=== PATIENT | male | born 1940 | race Caucasian/White ===

== ENCOUNTER → 2017-07-10 | Outpatient (CLI) | payer MEDICARE ==
[~2017-07-10] MED LIST: NKM
--- NOTE | 2017-07-10 09:17 | Diagnostic Imaging Report ---
PROCEDURE:X-RAY LEFT KNEE, THREE OR MORE VIEWS COMPARISON:None. INDICATIONS:UNILATERAL OSTEOARTHRITIS FINDINGS: No acute, displaced fracture or dislocation. There is moderate medial compartment predominant tricompartmental joint space narrowing, subchondral sclerosis, and marginal osteophytosis. No definite joint effusion. Heterogeneous calcifications within the distal quadriceps tendon. Soft tissues are otherwise unremarkable. 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 Dictated by: Hemanth Lubin M.D. on 07/10/2017 at 9:19 Electronically approved by: Hemanth Lubin M.D. on 07/10/2017 at 9:19
--- NOTE | 2017-07-10 09:38 | Diagnostic Imaging Report ---
PROCEDURE:X-RAY RIGHT SHOULDER, COMPLETE COMPARISON:None. INDICATIONS:RIGHT SHOULDER PAIN FINDINGS: No acute, displaced fracture or dislocation. The humeral head projects appropriately adjacent to the glenoid. There is moderate acromioclavicular joint space narrowing with undersurface osteophytosis. Similar joint space narrowing with marginal osteophytosis along the glenohumeral joint. Soft tissues are unremarkable. Partially visualized right hemithorax is well aerated. Calcific granuloma in the right midlung. 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 Dictated by: Hemanth Lubin M.D. on 07/10/2017 at 9:40 Electronically approved by: Hemanth Lubin M.D. on 07/10/2017 at 9:40
== END ==
LOC: RAD 08:28
PROVIDERS: ATTEND Family Medicine
DX: M17.12 Unilateral primary osteoarthritis, left knee (principal); M75.101 Unspecified rotator cuff tear or rupture of right shoulder, not specified as traumatic

== ENCOUNTER 2020-12-24 11:08 | Emergency (ER) | payer MEDICARE, OTHER ==
[~2020-12-24] VITALS: Ht 170.2 cm; Wt 76.7 kg
[2020-12-24] MEDS ORDERED: ALBUTEROL/IPRATROPIUM 3 ML NEB NEB ONE (12:00)
[2020-12-24] MEDS ORDERED: ALBUTEROL/IPRATROPIUM 3 ML NEB ONE (12:02)
[2020-12-24] MEDS ORDERED: PENICILLIN G BENZATHINE LA 1.2 MU TBX IM STA (12:50)
[2020-12-24] MEDS ORDERED: VENTOLIN HFA18 GM INH (12:53)
[2020-12-24] MEDS ORDERED: GUAIFENESIN-CO118 ML PO (12:56)
== END 2020-12-24 13:16 | disposition home or self-care (01) ==
LOC: FSED 11:15
DX: J02.0 Streptococcal pharyngitis (principal); J98.01 Acute bronchospasm; R91.8 Other nonspecific abnormal finding of lung field; Z20.822 Contact with and (suspected) exposure to COVID-19; Z96.652 Presence of left artificial knee joint
CPT/HCPCS: 71046; 83518; 87400; 99283; J0561; U0002

== ENCOUNTER 2021-07-19 09:29 | Emergency (ER) | payer MEDICARE, OTHER ==
[~2021-07-19] VITALS: Ht 170.2 cm; Wt 76.7 kg
[~2021-07-19 09:29] MED LIST changes: +GUAIFENESIN-CO118 ML PO; +VENTOLIN HFA18 GM INH
[2021-07-19] MEDS ORDERED: GOLYTELY SOLU4000 M1 PO (10:28)
== END 2021-07-19 10:38 | disposition home or self-care (01) ==
LOC: ER 10:00
DX: K59.00 Constipation, unspecified (principal); E03.9 Hypothyroidism, unspecified
CPT/HCPCS: 74018; 99283

== ENCOUNTER 2022-06-16 09:48 | Outpatient (RCR) | payer MEDICARE ==
[~2022-06-16 09:48] MED LIST changes: +GOLYTELY SOLU4000 M1 PO
== END 2022-06-19 ==
LOC: PT 09:48
PROVIDERS: ATTEND Specialist
DX: M17.0 Bilateral primary osteoarthritis of knee (principal); M75.102 Unspecified rotator cuff tear or rupture of left shoulder, not specified as traumatic

== ENCOUNTER 2022-06-24 07:00 | Outpatient (RCR) | payer MEDICARE ==
[2022-07-02] MEDS ORDERED: LEVOTHYROXINE50 MCG PO (10:14)
[2022-07-04] MEDS ORDERED: MECLIZINE HCL12.5 MG PO (20:31)
== END 2022-07-20 ==
LOC: PT 07:00
PROVIDERS: ATTEND Specialist
DX: M17.0 Bilateral primary osteoarthritis of knee (principal); M19.012 Primary osteoarthritis, left shoulder

== ENCOUNTER 2022-07-02 09:47 | Inpatient (IN) | payer MEDICARE ==
[~2022-07-02] VITALS: Ht 170.2 cm; Wt 78.2 kg
[2022-07-02] MEDS ORDERED: LEVOTHYROXINE50 MCG PO (10:14)
[2022-07-02] MEDS ORDERED: MECLIZINE HCL 12.5 MG TAB ONE (10:29)
[2022-07-02] MEDS ORDERED: MECLIZINE HCL 12.5 MG TAB PO ONE (10:30)
[2022-07-02] MEDS ORDERED: SODIUM CHLORIDE 0.9% 1000ML 1,000 ML ONE (11:19)
[2022-07-02] MEDS: SODIUM CHLORIDE 0.9% 1000ML 1,000 ML IV SCH ×2 (11:20→19:15)
[2022-07-02] MEDS ORDERED: ASPIRIN 81 MG CHEW TAB PO ONE (15:15)
[2022-07-02] MEDS ORDERED: SODIUM CHLORIDE FLUSH 10 ML SYR INJ PRN (15:15)
[2022-07-02] MEDS ORDERED: ASPIRIN 81 MG CHEW TAB ONE (15:46)
[2022-07-02 17:30] VITALS: BP 149/83; PULSE 65; RESP 18; TEMP 97.7; O2SAT 100
[2022-07-02 18:22] VITALS: BP 149/83; PULSE 65; RESP 18; TEMP 97.7; O2SAT 100
[2022-07-02 18:55] VITALS: BP_SYST 139; BP_SYST 144; BP_DIAS 76; BP_DIAS 80; PULSE 74; PULSE 77
[2022-07-02 18:56] VITALS: BP 141/69; PULSE 81
[2022-07-02 20:00] VITALS: BP 133/76; PULSE 75; RESP 16; TEMP 97.7; O2SAT 98
[2022-07-02 20:30] VITALS: PULSE 80; RESP 16; O2SAT 97
[2022-07-02] MEDS ORDERED: MECLIZINE HCL 12.5 MG TAB PO PRN (21:15)
[2022-07-03] VITALS (9 sets, daily range): BP systolic 104–129; BP diastolic 59–78; PULSE 66–75; RESP 16–18; TEMP 97–98.1; O2SAT 98–100
[2022-07-03] MEDS: SODIUM CHLORIDE 0.9% 1000ML 1,000 ML IV SCH ×3 (03:13→21:31)
[2022-07-03 05:03] LABS: BASOPHILS # (AUTO) 0.1 (0.0-0.1); BASOPHILS % 0.9 % (0.0-1.0); EOSINOPHILS # (AUTO) 0.2 (0.0-0.4); EOSINOPHILS % 3.1 % (0.0-6.0); HEMOGLOBIN 13.2 g/dL (14.0-18.0); LYMPHOCYTES # (AUTO) 1.3 (1.0-3.2); LYMPHOCYTES % 17.9 % (18.0-39.1); MEAN CORPUSCULAR HEMOGLOBIN 31.9 pg (28-32); MEAN CORPUSCULAR HGB CONC 33.8 g/dL (31-35); MEAN CORPUSCULAR VOLUME 94.2 fL (81-99); MONOCYTES # (AUTO) 0.7 (0.2-0.8); MONOCYTES % 10.5 % (4.4-11.3); NEUTROPHILS # (AUTO) 4.7 (2.1-6.9); NEUTROPHILS % 67.5 % (38.7-80.0); PLATELET COUNT 164 x10e3/uL (140-360); RED BLOOD COUNT 4.14 x10e6/uL (4.3-5.7); RED CELL DISTRIBUTION WIDTH 13.2 % (11.7-14.4)
[2022-07-03 05:31] LABS: ALBUMIN 3.4 g/dL (3.5-5.0); ALBUMIN/GLOBULIN RATIO 1.5 (0.8-2.0); ANION GAP 9.8 mmol/L (8-16); CALCIUM 8.5 mg/dL (8.4-10.2); CREATININE, SERUM 1.05 mg/dL (0.72-1.25); POTASSIUM 3.8 mmol/L (3.5-5.1)
[2022-07-03 06:25] LABS: CHOL/HDL RATIO 5.5 (3.9-4.7)
[2022-07-03 06:43] LABS: CREATINE KINASE MB 1.1 ng/mL (0-5.0)
[2022-07-03] MEDS: ASPIRIN 81 MG ENTERIC COATED PO SCH (08:26)
[2022-07-03] MEDS: LEVOTHYROXINE SODIUM 50 MCG TAB PO SCH (08:26)
[2022-07-03] MEDS ORDERED: BISACODYL 10 MG SUPP PR PRN (12:00)
[2022-07-03 12:48] LABS: CREATINE KINASE 82 IU/L (30-200)
[2022-07-03] MEDS: SENNOSIDES 8.6 MG TAB PO SCH ×2 (14:48→17:00)
[2022-07-03] MEDS: POLYETHYLENE GLYCOL 3350 17 GM PACK PO SCH (14:48)
[2022-07-03] MEDS: DOCUSATE SODIUM 100 MG CAP PO SCH (17:00)
[2022-07-04] VITALS (8 sets, daily range): BP systolic 105–147; BP diastolic 68–84; PULSE 59–68; RESP 17–19; TEMP 97.5–98.2; O2SAT 99–100
[2022-07-04 05:06] LABS: BASOPHILS % 0.7 % (0.0-1.0); EOSINOPHILS # (AUTO) 0.3 (0.0-0.4); HEMATOCRIT 39.6 % (38.2-49.6); HEMOGLOBIN 13.4 g/dL (14.0-18.0); LYMPHOCYTES # (AUTO) 1.3 (1.0-3.2); LYMPHOCYTES % 21.9 % (18.0-39.1); MEAN CORPUSCULAR HEMOGLOBIN 31.7 pg (28-32); MEAN CORPUSCULAR HGB CONC 33.8 g/dL (31-35); MEAN CORPUSCULAR VOLUME 93.6 fL (81-99); MONOCYTES # (AUTO) 0.6 (0.2-0.8); MONOCYTES % 10.7 % (4.4-11.3); NEUTROPHILS # (AUTO) 3.6 (2.1-6.9); NEUTROPHILS % 61.5 % (38.7-80.0); PLATELET COUNT 154 x10e3/uL (140-360); RED BLOOD COUNT 4.23 x10e6/uL (4.3-5.7); RED CELL DISTRIBUTION WIDTH 13.3 % (11.7-14.4)
[2022-07-04] MEDS: SODIUM CHLORIDE 0.9% 1000ML 1,000 ML IV SCH ×2 (05:26→17:16)
[2022-07-04 05:31] LABS: ALBUMIN 3.3 g/dL (3.5-5.0); ALBUMIN/GLOBULIN RATIO 1.5 (0.8-2.0); ANION GAP 10.4 mmol/L (8-16); CALCIUM 8.4 mg/dL (8.4-10.2); CREATININE, SERUM 0.92 mg/dL (0.72-1.25); MAGNESIUM 1.9 MG/DL (1.3-2.1); POTASSIUM 4.4 mmol/L (3.5-5.1)
[2022-07-04 06:24] LABS: CREATINE KINASE MB 1.2 ng/mL (0-5.0)
[2022-07-04] MEDS ORDERED: PROCHLORPERAZINE MALEATE TAB 10 MG TAB PO PRN (09:00)
[2022-07-04] MEDS: SENNOSIDES 8.6 MG TAB PO SCH ×2 (09:22→17:16)
[2022-07-04] MEDS: POLYETHYLENE GLYCOL 3350 17 GM PACK PO SCH (09:22)
[2022-07-04] MEDS: LEVOTHYROXINE SODIUM 50 MCG TAB PO SCH (09:22)
[2022-07-04] MEDS: ASPIRIN 81 MG ENTERIC COATED PO SCH (09:22)
[2022-07-04] MEDS: DOCUSATE SODIUM 100 MG CAP PO SCH ×2 (09:22→17:16)
[2022-07-04] MEDS ORDERED: MECLIZINE HCL12.5 MG PO (20:31)
[2022-07-04] MEDS ORDERED: ATORVASTATIN 40 MG TAB PO SCH (21:00)
[2022-07-05] MEDS ORDERED: LEVOTHYROXINE SODIUM 50 MCG TAB PO SCH (06:00)
== END 2022-07-04 21:24 | disposition home or self-care (01) | DRG 92 ==
LOC: FSED 09:56 → ERHOLD 15:15 → MED/SURG 17:20 → OBSVTOIN 07-04 13:26
PROVIDERS: ADMIT Internal Medicine; ATTEND Internal Medicine
DX: R27.0 Ataxia, unspecified (principal); N17.9 Acute kidney failure, unspecified; R42 Dizziness and giddiness; G62.9 Polyneuropathy, unspecified; E03.9 Hypothyroidism, unspecified; J61 Pneumoconiosis due to asbestos and other mineral fibers; R91.1 Solitary pulmonary nodule; R05.3 Chronic cough; J30.9 Allergic rhinitis, unspecified; K59.00 Constipation, unspecified; N40.0 Benign prostatic hyperplasia without lower urinary tract symptoms; Z87.891 Personal history of nicotine dependence; Z79.890 Hormone replacement therapy; Z81.8 Family history of other mental and behavioral disorders; Z80.42 Family history of malignant neoplasm of prostate; Z82.0 Family history of epilepsy and other diseases of the nervous system
CPT/HCPCS: 36415; 70496; 70498; 70551; 71046; 80053; 80061; 81003; 82550; 82553; 82607; 83735; 83880; 84484; 85025; 85379; 85610; 86039; 86592; 93005; 93880; 94799; 95819; 99284; G0378; J7030

== ENCOUNTER 2023-12-09 11:53 | Emergency (ER) | payer MEDICARE ==
[~2023-12-09] VITALS: Ht 170.2 cm; Wt 76.2 kg
[~2023-12-09 11:53] MED LIST changes: +ALLEGRA ALLERGY60 MG PO; +HYDROCODON-ACE1 EA12 PO; +IBUPROFEN800 MG PO; +LEVOTHYROXINE50 MCG PO; +MECLIZINE HCL12.5 MG PO; +MIRALAX17 GM PO; +TYLENOL EXTRA500 MG PO
[2023-12-09] MEDS ORDERED: ZITHROMAX250 MG PO (13:19)
[2023-12-09] MEDS: AZITHROMYCIN 250 MG TAB PO ONE (13:32)
[2023-12-09 14:02] VITALS: PULSE 65; RESP 17; TEMP 97.4; O2SAT 100
== END 2023-12-09 14:03 | disposition home or self-care (01) ==
LOC: FSED 12:38
DX: R05.9 Cough, unspecified (principal); J40 Bronchitis, not specified as acute or chronic; E86.0 Dehydration; Z77.090 Contact with and (suspected) exposure to asbestos; R91.1 Solitary pulmonary nodule; E78.5 Hyperlipidemia, unspecified; E03.9 Hypothyroidism, unspecified
CPT/HCPCS: 71046; 81003; 87420; 99283

== ENCOUNTER 2023-12-11 08:15 | Emergency (ER) | payer MEDICARE ==
[~2023-12-11] VITALS: Ht 175.3 cm; Wt 77.1 kg
[~2023-12-11 08:15] MED LIST changes: +ZITHROMAX250 MG PO
[2023-12-11 08:24] VITALS: TEMP 99.9
[2023-12-11 08:48] LABS: BASOPHILS % 0.1 % (0.0-1.0); LYMPHOCYTES # (AUTO) 0.4 (1.0-3.2); LYMPHOCYTES % 2.7 % (18.0-39.1); MEAN CORPUSCULAR HEMOGLOBIN 31.9 pg (28-32); MEAN CORPUSCULAR HGB CONC 33.3 g/dL (31-35); MEAN CORPUSCULAR VOLUME 95.7 fL (81-99); MONOCYTES # (AUTO) 0.7 (0.2-0.8); MONOCYTES % 4.2 % (4.4-11.3); NEUTROPHILS # (AUTO) 14.9 (2.1-6.9); NEUTROPHILS % 92.7 % (38.7-80.0); PLATELET COUNT 129 x10e3/uL (140-360); RED CELL DISTRIBUTION WIDTH 13.2 % (11.7-14.4); WHITE BLOOD COUNT 16.12 x10e3/uL (4.8-10.8)
[2023-12-11 09:06] LABS: ANION GAP 14.7 mmol/L (8-16); CALCIUM 9.1 mg/dL (8.4-10.2); CREATININE, SERUM 1.16 mg/dL (0.72-1.25); POTASSIUM 3.7 mmol/L (3.5-5.1)
[2023-12-11 09:07] LABS: INFLUENZAE A&B ANTIGEN (RAPID) NEGATIVE (NEGATIVE)
[2023-12-11 09:08] LABS: RESPIRATORY SYNC. VIRUS NEGATIVE (NEGATIVE)
[2023-12-11 10:10] VITALS: PULSE 82; RESP 15; O2SAT 96
[2023-12-11 10:20] LABS: CLARITY,URINE CLEAR (CLEAR); COLOR,URINE YELLOW (YELLOW); PH,URINE 5.5 (5 - 7)
[2023-12-11 10:21] LABS: BILIRUBIN,URINE NEGATIVE (NEGATIVE); GLUCOSE, URINE NEGATIVE (NEGATIVE); KETONES,URINE NEGATIVE (NEGATIVE); LEUKOCYTE ESTERASE ,URINE NEGATIVE (NEGATIVE); NITRITE,URINE NEGATIVE (NEGATIVE); PROTEIN,URINE DIPSTICK NEGATIVE (NEGATIVE); URINE UROBILINOGEN 0.2 mg/dL (0.2 - 1)
[2023-12-11 10:34] LABS: BACTERIA,URINE FEW /HPF; EPITHELIAL CELLS,URINE FEW /LPF
[2023-12-11 10:35] LABS: MUCUS,URINE FEW (RARE)
[2023-12-11 10:56] LABS: BAND NEUTROPHILS % (MANUAL) 2 %; LYMPHOCYTES % (MANUAL) 3 % (19-48); MONOCYTES % (MANUAL) 1 % (3.4-9.0); NEUTROPHILS % (MANUAL) 94 % (40-74)
[2023-12-11 10:57] LABS: PLATELET ESTIMATE SLIGHTLY DECREASED; PLATELET MORPHOLOGY COMMENT NORMAL; RBC MORPHOLOGY COMMENT NORMAL
[2023-12-11] MEDS ORDERED: SOLIFENACIN SUCC5 MG PO (21:13)
[2023-12-11] MEDS ORDERED: BENZONATATE100 MG (21:13)
[2023-12-11] MEDS ORDERED: ROSUVASTATIN CA20 MG PO (21:13)
[2023-12-11] MEDS ORDERED: PROMETHAZINE-D118 ML (21:13)
[2023-12-11] MEDS ORDERED: FLOMAX0.4 MG PO (22:36)
== END 2023-12-11 11:20 | disposition home or self-care (01) ==
LOC: ER 08:21
DX: R50.9 Fever, unspecified (principal); R53.1 Weakness; E78.5 Hyperlipidemia, unspecified; E03.9 Hypothyroidism, unspecified; M43.22 Fusion of spine, cervical region; Z11.52 Encounter for screening for COVID-19; R94.31 Abnormal electrocardiogram [ECG] [EKG]
CPT/HCPCS: 0223U; 36415; 80048; 81001; 85025; 87400; 87420; 93005; 99283

== ENCOUNTER 2023-12-11 14:42 | Observation (INO) | payer MEDICARE ==
[~2023-12-11] VITALS: Ht 175.3 cm; Wt 77.1 kg
[2023-12-11 15:33] VITALS: PULSE 74; RESP 18; O2SAT 96
[2023-12-11] MEDS: SODIUM CHLORIDE 0.9% 500ML 500 ML IV STA (16:00)
[2023-12-11 19:03] VITALS: PULSE 85; RESP 16; TEMP 99.7
[2023-12-11 20:22] VITALS: BP 113/63; PULSE 79; RESP 18; TEMP 98.3; O2SAT 98
[2023-12-11] MEDS ORDERED: SOLIFENACIN SUCC5 MG PO (21:13)
[2023-12-11] MEDS ORDERED: ROSUVASTATIN CA20 MG PO (21:13)
[2023-12-11] MEDS ORDERED: BENZONATATE100 MG (21:13)
[2023-12-11] MEDS ORDERED: PROMETHAZINE-D118 ML (21:13)
[2023-12-11 21:27] VITALS: BP 116/63; PULSE 79; RESP 18; TEMP 98.3; O2SAT 98
[2023-12-11 22:21] VITALS: BP 116/63; PULSE 79; RESP 18; TEMP 98.3; O2SAT 98
[2023-12-11] MEDS ORDERED: ONDANSETRON HCL INJ 2MG/ML 2ML 2 MG/ML VIAL IV PRN (22:30)
[2023-12-11] MEDS ORDERED: ACETAMINOPHEN 325 MG TAB PO PRN (22:30)
[2023-12-11] MEDS ORDERED: FLOMAX0.4 MG PO (22:36)
[2023-12-11] MEDS ORDERED: IOPAMIDOL 370 MG/ML 100 ML INFUS..BTL INJ ONE (22:51)
[2023-12-11] MEDS: SODIUM CHLORIDE 0.9% 1000ML 1,000 ML IV SCH (23:21)
[2023-12-12] VITALS (10 sets, daily range): BP systolic 110–127; BP diastolic 60–66; PULSE 64–79; RESP 16–18; TEMP 97.7–98.4; O2SAT 97–99
[2023-12-12] MEDS ORDERED: MECLIZINE HCL 12.5 MG TAB PO PRN (01:45)
[2023-12-12] MEDS ORDERED: LORATADINE 10 MG TAB PO PRN (01:45)
[2023-12-12] MEDS ORDERED: POLYETHYLENE GLYCOL 3350 17 GM PACK PO PRN (01:45)
[2023-12-12 05:55] LABS: BASOPHILS % 0.3 % (0.0-1.0); EOSINOPHILS # (AUTO) 0.1 (0.0-0.4); HEMATOCRIT 40.3 % (38.2-49.6); HEMOGLOBIN 13.1 g/dL (14.0-18.0); LYMPHOCYTES # (AUTO) 1.2 (1.0-3.2); LYMPHOCYTES % 13.7 % (18.0-39.1); MEAN CORPUSCULAR HEMOGLOBIN 31.6 pg (28-32); MEAN CORPUSCULAR HGB CONC 32.5 g/dL (31-35); MEAN CORPUSCULAR VOLUME 97.1 fL (81-99); MONOCYTES # (AUTO) 0.9 (0.2-0.8); MONOCYTES % 10.2 % (4.4-11.3); NEUTROPHILS # (AUTO) 6.7 (2.1-6.9); NEUTROPHILS % 74.5 % (38.7-80.0); PLATELET COUNT 131 x10e3/uL (140-360); RED BLOOD COUNT 4.15 x10e6/uL (4.3-5.7); RED CELL DISTRIBUTION WIDTH 13.5 % (11.7-14.4)
[2023-12-12 06:34] LABS: ANION GAP 9.5 mmol/L (8-16); CALCIUM 8.5 mg/dL (8.4-10.2); CREATININE, SERUM 1.05 mg/dL (0.72-1.25); POTASSIUM 3.5 mmol/L (3.5-5.1)
[2023-12-12] MEDS: TAMSULOSIN HCL 0.4 MG CAP PO SCH (09:26)
[2023-12-12] MEDS: LORATADINE 10 MG TAB PO SCH (09:26)
[2023-12-12] MEDS: LEVOTHYROXINE SODIUM 50 MCG TAB PO SCH (09:26)
[2023-12-12] MEDS: SOLIFENACIN SUCCINATE 5 MG TAB PO SCH (09:35)
[2023-12-13] VITALS: BP 134/49; PULSE 74; RESP 19; TEMP 98; O2SAT 96
[2023-12-13 04:00] VITALS: BP 120/61; PULSE 68; RESP 19; TEMP 96.3; O2SAT 97
[2023-12-13 07:42] VITALS: BP 143/67; PULSE 70; RESP 17; TEMP 97.9; O2SAT 100
[2023-12-13 09:52] VITALS: BP 143/67; PULSE 70; RESP 17; TEMP 97.9; O2SAT 100
[2023-12-13 11:30] VITALS: BP 127/70; PULSE 67; RESP 21; TEMP 98.6; O2SAT 100
[2023-12-13] MEDS ORDERED: ONDANSETRON HCL 4 MG ORAL DISINTEGRATING TAB PO PRN (16:15)
== END 2023-12-13 16:43 | disposition home health service (06) ==
LOC: ER 14:56 → ERHOLD 15:11 → MED/SURG 20:35
PROVIDERS: ADMIT Internal Medicine; ATTEND Internal Medicine
DX: N41.9 Inflammatory disease of prostate, unspecified (principal); N39.0 Urinary tract infection, site not specified; K52.9 Noninfective gastroenteritis and colitis, unspecified; E86.0 Dehydration; R53.1 Weakness; R53.81 Other malaise; M48.02 Spinal stenosis, cervical region; M48.04 Spinal stenosis, thoracic region; M19.011 Primary osteoarthritis, right shoulder; G89.29 Other chronic pain; Z98.1 Arthrodesis status; E03.9 Hypothyroidism, unspecified; E78.5 Hyperlipidemia, unspecified; M25.511 Pain in right shoulder; W07.XXXA Fall from chair, initial encounter; Z79.899 Other long term (current) drug therapy
CPT/HCPCS: 36415; 70450; 71045; 72125; 72141; 73030; 74177; 80048; 85025; 94799 ×2; 97116; 97161; 99284; G0378 ×3; J0696 ×3; J7030 ×3; J7040; Q9967